=== PATIENT | male | born 1995 ===

== ENCOUNTER 2017-01-11 18:33 | Emergency (ER) | payer BC, OTHER ==
--- NOTE | ~2017-01-11 | ER ---
PATIENT'S NAME: LISY MITCHELL [facility] AGE: 21 Y [address] ROOM: [place] [address] LOCATION: [facility] ADMIT DATE: 01/11/2017 ER/Outpatient Report DISCHARGE DATE: 01/11/2017 FAMILY PHYSICIAN: Toby Perez MD ATTENDING PHYSICIAN: Raeann Petersen Time of Arrival: 1837 hours. Time of Evaluation: 1844 hours. CHIEF COMPLAINT: Scalp laceration. HISTORY OF PRESENT ILLNESS: The patient states he was getting something out of his car truck just prior to arrival when he slipped and hit the top of his head on the truck. Denies having any loss of consciousness. Has not had any vision changes. Denies having a headache. Does have a small abrasion to the top of his head. ALLERGIES: ASPIRIN. CURRENT MEDICATIONS: None. PAST MEDICAL HISTORY: Benign. SURGERIES: Circumcision. SOCIAL HISTORY: Denies use of tobacco or drugs. Drinks alcohol on a social basis only. Reports his tetanus is current. REVIEW OF SYSTEMS: All negative other than those mentioned in the HPI. PHYSICAL EXAMINATION: VITAL SIGNS: He weighed 80.2 kg, pulse is 85, respirations 16, temperature of 98.7 tympanic, and O2 saturation is 98% on room air. GENERAL: He is awake, alert, and oriented x4. SKIN: [place], warm, and dry. RESPIRATIONS: Even and nonlabored. HEENT: Pupils are equal and reactive to light. Extraocular movement is intact. PATIENT'S NAME: LISY MITCHELL [facility] AGE: 21 Y [address] ROOM: [place] [address] LOCATION: [facility] ADMIT DATE: 01/11/2017 ER/Outpatient Report DISCHARGE DATE: 01/11/2017 FAMILY PHYSICIAN: Toby Perez MD ATTENDING PHYSICIAN: Raeann Petersen EXTREMITIES: He moves all extremities strongly and equally. LUNGS: Lung sounds are clear throughout. HEART: Regular rate and rhythm. EMERGENCY DEPARTMENT COURSE: The patient has a small abrasion to the top of his head. Bleeding is well controlled at this time. It is not gaping open. Does not require any treatment. IMPRESSION: Head injury. PLAN: Home. Rest. Tylenol or ibuprofen as needed for discomfort. May wash his hair, careful when combing to his hair. Follow up with his primary provider in the next 2 to 3 days as needed or is welcome to return to the ER as needed. He verbalized understanding. EVENS RENDON APRN FOR [facility]/bruce /[id number] d: 01/12/17 0110 t: 01/16/17 1819, OUTPATIENT REPORT
== END 2017-01-11 18:49 | disposition disaster alternative care site (69) ==
LOC: GACC 18:33
DX: S00.91XA Abrasion of unspecified part of head, initial encounter (principal); Z88.6 Allergy status to analgesic agent; W18.49XA Other slipping, tripping and stumbling without falling, initial encounter